=== PATIENT | male | born 1965 | race African-American/Black ===

== ENCOUNTER → 2018-01-14 | Day surgery (SDC) | payer OTHER ==
[2018-01-11 11:40] VITALS: BMI 29.5
[~2018-01-14] MED LIST: BUPIVACAIN-EPI 0.25%-1:200,000 30 ML VIAL INTRAARTIC ONE; DEXAMETHASONE SOD PHOSPHATE 10 MG/ML 1 ML VIAL IV ONE; GLYCOPYRROLATE 0.2 MG/ML 2 ML VIAL ONE; LACTATED RINGERS 1,000 ML IV ONE; LACTATED RINGERS 1,000 ML IV SCH; LIDOCAINE 1% 20 ML VIAL (10MG/ML) FOR IV START INTRADERMA ONE; LIDOCAINE 1% INJ 10MG/ML (20 ML MDV) ONE; LIDOCAINE 2%-EPI 1:100,000 20 ML VIAL ONE; MIDAZOLAM 2 MG/2 ML VIAL IV PRN; MORPHINE SULFATE 4 MG/ML SYRINGE IV PRN; ONDANSETRON 4 MG/2 ML VIAL IVP ONE; PHENYLEPHRINE-0.9% NACL SYG 1 MG/10 ML SYRINGE ONE; PROPOFOL 10 MG/ML 20 ML VIAL IV ONE; Pre Op ABX Message 1 EACH MISC MISCELLANE ONE; ROPIVACAINE 5 MG/ML 30 ML VIAL ONE; SUCCINYLCHOLINE CHLORIDE VIAL 200 MG/10 ML VIAL IV ONE; ceFAZolin IN SWFI 2 GM/20 ML SYRINGE IVP ONE; ePHEDrine SULFATE/0.9% NACL/PF 50 MG/5 ML SYRINGE IV ONE; fentaNYL (PF) 50 MCG/ML 2 ML AMP ONE
[2018-01-14 10:44] VITALS: RESP 16
[2018-01-14 11:11] LABS: Basophils % (A) 1 %; Eosinophils # (A) 0.2 k/uL (0-0.7); Eosinophils % (A) 4 %; HCT 40.5 % (39.0-53.0); HGB 13.7 gm/dL (13.0-17.5); Lymphocytes # (A) 1.3 k/uL (1.0-4.8); Lymphocytes % (A) 33 %; MCH 27.4 pg (25.0-35.0); MCHC 33.8 g/dL (31.0-37.0); MCV 81.1 fL (80.0-100.0); Mean Platelet Volume 6.4; Monocytes # (A) 0.4 k/uL (0-1.0); Monocytes % (A) 9 %; Neutrophils # (A) 2.1 k/uL (1.3-7.7); Neutrophils % (A) 51 %; Platelet Count 223 k/uL (150-450); RDW 14.1 % (11.5-15.5); WBC 4.1 k/uL (3.8-10.6)
[2018-01-14 13:54] VITALS: TEMP 97.3
--- NOTE | 2018-01-14 14:17 | P.ONQ ---
Anesthesiology Proc Note - PNB - Peripheral Nerve Block Performed Right Interscalene Single Time Out Performed: Yes Procedure Start Time: :23 Indication: Acute Post-Operative Pain, Analgesia Specifically requested for management of pain by DrTawnya: Juan Griffith Sedation Type: Sedate with meaningful contact maintained Preparation: Sterile Prep Position: Supine Catheter: None Needle Types: Other (see comment) (pajunk) Needle Size: 50mm (2") Needle Gauge: 21 Technique: Ultrasound Injectate: 0.5% Ropivacaine (see comment for volume) (30 cc) Blood Aspirated: No Pain Paresthesia on Injection Noted: No Resistance on Injection: Normal Events: Uneventful and Well Tolerated
[2018-01-14 14:34] VITALS: PULSE 83
[2018-01-14 14:48] VITALS: BP 139/82
--- NOTE | 2018-01-14 15:06 | OP ---
OPERATIVE REPORT DATE OF PROCEDURE: 01/14/2018 SURGEON: Juan Griffith MD. HORSE RACING ANALYST: KELL Erickson PREOPERATIVE DIAGNOSES: 1. Right shoulder full-thickness rotator cuff tear. 2. Right shoulder superior labral tear. 3. Right shoulder bicipital tenosynovitis. 4. Right shoulder subacromial impingement. POSTOPERATIVE DIAGNOSES: 1. Right shoulder full-thickness tear of the supraspinatus and anterior infraspinatus measuring 2 cm x 2 cm tear. 2. Right shoulder type 2 displaced superior labral tear. 3. Right shoulder high-grade partial tearing of the intra-articular portion of long head of the biceps tendon. 4. Right shoulder type 2 anterolateral acromial spur. 5. Right shoulder dense subacromial adhesions. PROCEDURE PERFORMED: 1. Right shoulder arthroscopic rotator cuff repair 2 cm x 2 cm tear. 2. Right shoulder arthroscopic acromioplasty. 3. Right shoulder arthroscopic biceps tenotomy. 4. Right shoulder arthroscopic anterior, superior and posterior labral debridement. 5. Right shoulder arthroscopic lysis of adhesions. ANESTHESIA: General endotracheal. ESTIMATED BLOOD LOSS: Minimal. TOURNIQUET: None. DRAINS: None. COMPLICATIONS: None apparent. DISPOSITION: Postanesthesia care unit. Examination under anesthesia, right shoulder elevation 150 degrees, external rotation at the side was to 30 degrees, external rotation at 90 degrees, abduction was 90 degrees, internal rotation at 90 degrees, abduction was 60 degrees, sulcus less than 1 cm, anterior translation glenoid face, posterior translation glenoid face. ARTHROSCOPIC FINDINGS RIGHT SHOULDER: 1. Superior labrum, degenerative type 2 superior labral tear tearing both anterior and posterior to the biceps anchor. The biceps anchor was not intact. There is also high-grade partial tearing of the intra-articular portion of long head of the biceps tendon. 2. Anterior inferior labrum, normal glenoid labral attachment. 3. Posterior labrum tearing of the posterior labrum from the 10 o'clock position up to the 12 o'clock position on the glenoid face. 4. Humeral head cartilage was normal. 5. Rotator cuff full-thickness tear of the supraspinatus and anterior aspect of the infraspinatus measuring 2 cm x 2 cm with moderate retraction. There was also significant fraying of the superior rolled border of the subscapularis, but approximate 90% intact attachment to the lesser tuberosity. 6. Glenoid face cartilage just mild grade 1 fraying. 7. Subacromial space significant fraying of the undersurface of the coracoacromial ligament with a type 2 anterolateral acromial spur. There is also very dense subacromial adhesions, adhesing the rotator cuff to the inferior aspect of the acromion. INDICATIONS: Romario is a pleasant 52-year-old male with longstanding right shoulder pain. He has noted weakness as well as significant pain in the shoulder. He has been through a very significant course of nonoperative treatment up to this point. Further examination and MRI reveal tearing of the rotator cuff as well as tearing of the superior labrum. At this point, he feels as if he has failed nonoperative treatment and would like to proceed with operative intervention. A long discussion was held with the patient with regard to treatment options. The risks of the procedure were all discussed with him in detail. These risks included, but were not limited to risk of infection, nerve damage, bleeding, pain, and a small risk of deep vein thrombosis which could lead to fatal pulmonary embolism. Further risks include lack of healing rotator cuff and the possibility for biceps contour change with a biceps tenotomy. The patient understands the operation as well as the fact that there was no guarantee of improvement of his symptoms. An appropriate informed consent was obtained. DESCRIPTION OF PROCEDURE: Patient identified in the preoperative holding area. Surgical sites marked by both the patient myself. He was given 2 g of Ancef IV for prophylactic purposes. He was then transported to the operative suite, was placed supine on the operative table. The patient was then intubated endotracheally and received general anesthesia throughout the operative procedure. Examination under anesthesia was then performed and the findings were noted above. Patient was then placed into the beach-chair position and well-padded in preparation for surgery. Great care was taken to ensure the cervical spine was in neutral alignment, well-padded and maintained that way throughout the operative procedure. Great care was also taken to ensure that his legs were appropriately padded as well. Patient's right upper extremity is then prepped and draped in the usual sterile fashion. Standard surgical pause undertaken to ensure that appropriate preoperative antibiotics have been given and that we were operating in the correct site. All staff in the room were in agreement and we proceeded. The acromion as well as the AC joint, coracoid were marked with surgical pen. The skin of the anticipated portal sites were also marked with surgical pen. The skin of the anticipated portal sites were then marked with surgical pen. The skin at the anticipated portal sites were then injected with 0.25% Marcaine with epinephrine. I then proceeded to make a posterior portal. A 30 degree arthroscope was introduced in the glenohumeral joint through this portal. The arthroscopic pump pressure was set at 40 mmHg and maintained at that level throughout the entire case. Next, utilizing an 18-gauge spinal needle, topical localized the placement, the anterior superior portal was made. This was made just underneath the biceps tendon high in the rotator interval. A pair of small blue 5.75 mm cannula was then placed and the outflow was then done through this cannula. Diagnostic arthroscopy of the shoulder was then performed. The findings were noted above. Great care was taken to probe superior labral complex throughout the biceps anchor. The biceps anchor was not firmly attached. He has significant tearing of the superior labrum. This extended both anterior and posterior to the biceps anchor. The intra- articular portion of long head of the biceps tendon did have high-grade partial tearing as well. At this point, I proceeded with a biceps tenotomy. The biceps was tenotomized near its attachment onto the supraglenoid tubercle. This was done utilizing the ArthroCare wand. I then proceeded to debride the torn loose tissue of the superior labrum. This was debrided anteriorly, superiorly and posteriorly back to stable tissue. I then inspect the rotator cuff from intra-articular. He did have a fairly large full- thickness tear of the supraspinatus, which extended into the anterior aspect of the infraspinatus. He also had some significant fraying and partial tearing of the superior rolled border of the subscapularis. However, the subscapularis showed good attachment throughout 90% of the tendon to the lesser tuberosity. At this point in time. no further work was deemed necessary from intra-articular. The arthroscope was removed from the from the glenohumeral joint and utilizing in the same posterior skin incision and was placed into the subacromial space. Utilizing an 18-gauge spinal needle, topical localized placement, a lateral portal was made under direct visualization. Subacromial bursectomy was then performed utilizing synovial shaver as well as the ArthroCare wand. There was significant fraying of the undersurface of the coracoacromial ligament. This was then taken down utilizing the ArthroCare wand. This exposed underlying type 2 anterolateral acromial spur. I then proceeded with an acromioplasty. Utilizing synovial shaver in a alexi-type fashion. the acromioplasty was completed. When the acromioplasty was complete, the arthroscope was placed in the lateral portal and shaver placed posteriorly to ensure there was adequate and coplanar with the posterior aspect of the acromion. I then proceeded to repair the rotator cuff tear. He had a full-thickness tear of the rotator cuff. This measured approximately 2 cm x 2 cm. The footprint of the greater tuberosity was then debrided of all devitalized tissue utilizing synovial shaver as well as the ArthroCare wand. I then performed a light decortication of the greater tuberosity utilizing synovial shaver in a alexi-type fashion. This provided a nice bleeding surface with repair. Then placed small microfracture holes along the articular margin to again enhance the healing of the repair. I then utilized Roobiq suture passer and placed Arthrex fiber tape suture in inverted horizontal mattress fashion in the posterior 1/2 of the tear. The sutures were shuttled out through the posterior portal. I then placed a second Arthrex FiberTape suture in an inverted horizontal mattress fashion in the anterior 1/2 of the tear. The sutures were shuttled out through the anterior portal. I then proceeded with placement of the anchor. The awl was placed in the most posterior lateral aspect of the footprint. The posterior sutures were then shuttled out through the lateral portal. He had good bone quality. An Arthrex 4.75 mm bio SwiveLock anchor was chosen. FiberTape sutures were shuttled through the anchor. They were tentioned appropriately and then the anchor was placed with excellent purchase in bone. This brought the posterior aspect of the tear down very nicely in the most posterolateral aspect of the footprint. The FiberTape sutures were cut flush with the anchor. I then proceeded with placement of the second anchor. The awl was placed in the most anterolateral aspect of the footprint. This was just posterior to the bicipital groove. Again, the FiberTape sutures were shuttled through another 4.75 mm bio SwiveLock anchor. Then the anchor was then placed after tensioning the sutures appropriately. This anchor also had an excellent purchase in bone. This brought the anterior half of the tear down very nicely to the most anterolateral aspect of the footprint. I then probed the repair. It was very secure. The sutures had good tension. The rotator cuff was then brought down very nicely in the most lateral aspect of the footprint. The shoulder was internally and externally rotated to inspect the remainder and at this point, no further work was deemed necessary. The shoulder was then thoroughly irrigated and drained with outflow cannula. The arthroscope was removed from the shoulder. The arthroscopic portals were then closed with 3-0 nylon interrupted suture. Sterile compressive dressing was then applied. The patient's right upper extremity was then placed into a slingshot-type rotator cuff immobilizer. All sponge and needle counts were deemed correct prior to closure. The patient tolerated the procedure without apparent complication. He was transferred to recovery room in stable condition. MILANA / RUFUSN: [id number] /
== END | disposition home or self-care (01) ==
LOC: OR 10:12
PROVIDERS: ATTEND Orthopaedic Surgery Sports Medicine
DX: M75.121 Complete rotator cuff tear or rupture of right shoulder, not specified as traumatic (principal); S43.491A Other sprain of right shoulder joint, initial encounter; S46.111A Strain of muscle, fascia and tendon of long head of biceps, right arm, initial encounter; M75.01 Adhesive capsulitis of right shoulder; M75.81 Other shoulder lesions, right shoulder; W19.XXXA Unspecified fall, initial encounter; I10 Essential (primary) hypertension; E78.5 Hyperlipidemia, unspecified; Z72.0 Tobacco use; R73.03 Prediabetes; D57.3 Sickle-cell trait; M50.10 Cervical disc disorder with radiculopathy, unspecified cervical region; Z79.899 Other long term (current) drug therapy; Z85.46 Personal history of malignant neoplasm of prostate
CPT/HCPCS: 64415; 85025; 29826; 29827; 29823; 29807; C1713 ×3; J2250; J0330; J1100; J2405; J2001; J3010; J2795; J2370; J2704; J0690

== ENCOUNTER 2018-07-11 11:32 | Emergency (ER) | payer OTHER ==
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
--- NOTE | 2018-07-11 12:16 | XR ---
EXAMINATION TYPE: XR finger RT , 3 VIEWS DATE OF EXAM ORDERED: 07/11/2018 HISTORY: Pain. COMPARISON: None. FINDINGS: No fracture, dislocation or other acute osseous lesion is seen. IMPRESSION: NO ACUTE OSSEOUS LESION.
[2018-07-11 13:05] VITALS: BP 143/90; PULSE 63; RESP 18; TEMP 97.5
== END 2018-07-11 13:13 | disposition home or self-care (01) ==
LOC: EC 11:32
DX: S61.214A Laceration without foreign body of right ring finger without damage to nail, initial encounter (principal); I10 Essential (primary) hypertension; M19.90 Unspecified osteoarthritis, unspecified site; F17.200 Nicotine dependence, unspecified, uncomplicated; Z79.1 Long term (current) use of non-steroidal anti-inflammatories (NSAID); Z79.899 Other long term (current) drug therapy; Z85.46 Personal history of malignant neoplasm of prostate; Z98.890 Other specified postprocedural states; Y08.02XA Assault by strike by baseball bat, initial encounter; Y93.89 Activity, other specified; Y92.009 Unspecified place in unspecified non-institutional (private) residence as the place of occurrence of the external cause
CPT/HCPCS: 99283

== ENCOUNTER 2018-07-14 16:25 | Emergency (ER) | payer OTHER ==
[2018-07-14 16:48] VITALS: BP 163/95; PULSE 65; RESP 18; TEMP 98.3
--- NOTE | 2018-07-14 17:46 | XR ---
EXAMINATION TYPE: XR knee complete RT DATE OF EXAM: 07/14/2018 COMPARISON: NONE HISTORY: Pain after falling TECHNIQUE: 3 views FINDINGS: I see no fracture nor dislocation. There is mild knee joint effusion. There is bipartite pa tella which is a normal variant. There is spurring on the patella. Impression no acute bony abnormality. Small knee joint effusion.
--- NOTE | 2018-07-14 17:47 | XR ---
EXAMINATION TYPE: XR shoulder complete LT DATE OF EXAM: 07/14/2018 COMPARISON: NONE HISTORY: Pain TECHNIQUE: 3 views FINDINGS: I see no fracture nor dislocation. Joint spaces are normal. There are no pathologic calcifi cations. IMPRESSION: Negative left shoulder exam.
--- NOTE | 2018-07-14 17:56 | ED ---
General Adult HPI - General Chief complaint: Extremity Injury, Lower Stated complaint: Shoulder&Knee Injury Time Seen by Provider: 07/14/18 16:49 Source: patient, RN notes reviewed Mode of arrival: ambulatory Limitations: no limitations - History of Present Illness Initial comments: Patient is a 53-year-old male who comes in with complaints of right knee and left shoulder pain after he fell yesterday. 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 Patient denies hitting his head , losing consciousness or having dizziness. He states that he now is having trouble abducting his left arm. Denies any numbness or tingling. Denies neck pain. States he has a laceration on his finger from a few days ago that has been treated. - Related Data Home Medications Medication Instructions Recorded Confirmed Ergocalciferol [Vitamin D2] 50,000 unit PO TH 01/11/18 07/11/18 Ibuprofen 800 mg PO QID PRN 01/11/18 07/11/18 Meloxicam 15 mg PO DAILY 01/11/18 07/11/18 amLODIPine [Norvasc] 5 mg PO DAILY 01/11/18 07/11/18 Previous Rx's Medication Instructions Recorded Docusate [Colace] 100 mg PO BID #60 capsule 01/14/18 Doxycycline Hyclate 100 mg PO BID #10 tab 01/14/18 HYDROcodone/APAP 7.5-325MG [[place] 1 - 2 tab PO Q6HR PRN #60 tab 01/14/18 7.5-325] Cephalexin [Keflex] 500 mg PO Q6HR #28 cap 07/11/18 Allergies Allergy/AdvReac Type Severity Reaction Status Date / Time No Known Allergies Allergy Verified 07/14/18 16:48 Review of Systems ROS Statement: Those systems with pertinent positive or pertinent negative responses have been documented in the HPI. ROS Other: All systems not noted in ROS Statement are negative. Past Medical History Past Medical History: Cancer, Diabetes Mellitus, Hyperlipidemia, Hypertension, Osteoarthritis (OA), Prostate Disorder Additional Past Medical History / Comment(s): HX OF BORDERLINE DIABETES-no problems since wt loss-watches diet. , HEART MURMUR A CHILD, STATES HE SNORES ALOT., SICKLE CELL TRAIT, PROSTATE CANCER History of Any Multi-Drug Resistant Organisms: None Reported Past Surgical History: Back Surgery, Orthopedic Surgery, Prostate Surgery Additional Past Surgical History / Comment(s): LAMINECTOMY X 2., right shoulder Past Anesthesia/Blood Transfusion Reactions: No Reported Reaction Additional Past Anesthesia/Blood Transfusion Reaction / Comment(s): . Past Psychological History: Depression Smoking Status: Current every day smoker Past Alcohol Use History: Occasional Past Drug Use History: None Reported - Past Family History Father Family Medical History: Diabetes Mellitus, Hypertension Mother Family Medical History: No Reported History General Exam - General Exam Comments Initial Comments: General: The patient is awake and alert, in no distress, and does not appear acutely ill. Neck: The neck is supple, there is no tenderness or JVD. Cardiovascular: There is a regular rate and rhythm. No murmur, rub or gallop is appreciated. Radial pulses 2+. DP pulses 2+. PT pulses 2+. Cap refill less than 3 seconds upper and lower extremities. Respiratory: Lungs are clear to auscultation, respirations are non-labored, breath sounds are equal. No wheezes, stridor, rales, or rhonchi. Musculoskeletal: Patient unable to fully abduct left arm. Tenderness to palpation over left shoulder. Right arm range of motion normal. Full neck range of motion without pain. Funeral Prearrangement Counselor strength 5 out of 5 bilaterally. Elbow range of motion normal bilaterally. Knee range of motion normal bilaterally. Tenderness to palpation over the right knee. Right knee anterior drawer test negative. Right hip ROM normal. Neurological: A&O x 3. There are no obvious motor or sensory deficits. Coordination appears grossly intact. Speech is normal. Skin: Skin is warm and dry. Small bruise over the anterior upper arm. Laceration on the right 4th digit without redness, drainage or swelling. Psychiatric: Normal mood and affect. Limitations: no limitations Course Vital Signs 07/14/18 16:46 Temperature 98.3 F Pulse Rate 65 Respiratory 18 Rate Blood Pressure 163/95 O2 Sat by Pulse 98 Oximetry Medical Decision Making - Medical Decision Making Patient complains of right knee and left shoulder pain. X-rays of the right knee and left shoulder were both negative. Pt instructed to follow up with orthopedics within a day or two. Tylenol or ibuprofen for pain as needed. Patient states he has antibiotic ointment at home for his finger laceration. Disposition Clinical Impression: Left shoulder pain, Right knee pain Disposition: HOME SELF-CARE Condition: Good Instructions: Shoulder Pain (ED), Knee Pain (ED) Additional Instructions: Follow-up with orthopedics in a day or 2. Return to the ER if symptoms worsen or any other concerns. Is patient prescribed a controlled substance at d/c from ED?: No Referrals: Jose Angel Goodrich MD [Primary Care Provider] - 1-2 days Dat Soler MD [STAFF PHYSICIAN] - 1-2 days Time of Disposition: 18:25 (Patient left before given discharge paperwork. )
== END 2018-07-14 18:23 | disposition home or self-care (01) ==
LOC: EC 16:25
DX: S40.022A Contusion of left upper arm, initial encounter (principal); S61.214D Laceration without foreign body of right ring finger without damage to nail, subsequent encounter; M25.561 Pain in right knee; M25.512 Pain in left shoulder; M21.371 Foot drop, right foot; I10 Essential (primary) hypertension; M19.90 Unspecified osteoarthritis, unspecified site; F17.200 Nicotine dependence, unspecified, uncomplicated; Z79.1 Long term (current) use of non-steroidal anti-inflammatories (NSAID); Z79.899 Other long term (current) drug therapy; Z85.46 Personal history of malignant neoplasm of prostate; Z98.890 Other specified postprocedural states; W01.0XXA Fall on same level from slipping, tripping and stumbling without subsequent striking against object, initial encounter; X58.XXXD Exposure to other specified factors, subsequent encounter
CPT/HCPCS: 99283

== ENCOUNTER 2020-04-02 21:43 | Emergency (ER) | payer OTHER ==
[2020-04-02 21:51] VITALS: RESP 18
[2020-04-02] MEDS ORDERED: SODIUM CHLORIDE 0.9% 1,000 ML IV STA (22:10)
[2020-04-02] MEDS ORDERED: KETOROLAC 30 MG/ML 1 ML VIAL IVP STA (22:11)
--- NOTE | 2020-04-02 22:16 | ED ---
Abdominal Pain HPI - General Chief Complaint: Abdominal Pain Stated Complaint: Chest Pain,Abdominal Pain Time Seen by Provider: 04/02/20 22:03 Source: patient, RN notes reviewed Mode of arrival: ambulatory Limitations: no limitations - History of Present Illness Initial Comments: This is a 54-year-old male with a history of rotator cuff injury but no personal history of heart lung or abdominal disease who states he's had 4 days of midepigastric pain feeling heartburn right now is about 8/10 severity gets worse with certain foods no shortness breath no nausea vomiting no fevers chills or sweats he believes he was told by his doctor he did have gallbladder issues. Pains this bad won't go away. He has been doing in the past he does state he feels a 52 and passed gas either burping her from his rectum and wouldn't relieve the pain but hasn't happened yet. No other complaints or modifying factors is a family history of heart disease patient does have elevated cholesterol no other complaints he does smoke. MD Complaint: abdominal pain - Related Data Home Medications Medication Instructions Recorded Confirmed Ergocalciferol [Vitamin D2] 50,000 unit PO TH 01/11/18 07/11/18 Ibuprofen 800 mg PO QID PRN 01/11/18 07/11/18 Meloxicam 15 mg PO DAILY 01/11/18 07/11/18 amLODIPine [Norvasc] 5 mg PO DAILY 01/11/18 07/11/18 Previous Rx's Medication Instructions Recorded Docusate [Colace] 100 mg PO BID #60 capsule 01/14/18 Doxycycline Hyclate 100 mg PO BID #10 tab 01/14/18 HYDROcodone/APAP 7.5-325MG [[place] 1 - 2 tab PO Q6HR PRN #60 tab 01/14/18 7.5-325] Cephalexin [Keflex] 500 mg PO Q6HR #28 cap 07/11/18 Allergies Allergy/AdvReac Type Severity Reaction Status Date / Time No Known Allergies Allergy Verified 04/02/20 21:51 Review of Systems ROS Statement: Those systems with pertinent positive or pertinent negative responses have been documented in the HPI. ROS Other: All systems not noted in ROS Statement are negative. Past Medical History Past Medical History: Cancer, Diabetes Mellitus, Hyperlipidemia, Hypertension, Osteoarthritis (OA), Prostate Disorder Additional Past Medical History / Comment(s): HX OF BORDERLINE DIABETES-no problems since wt loss-watches diet. , HEART MURMUR A CHILD, STATES HE SNORES ALOT., SICKLE CELL TRAIT, PROSTATE CANCER History of Any Multi-Drug Resistant Organisms: None Reported Past Surgical History: Back Surgery, Orthopedic Surgery, Prostate Surgery Additional Past Surgical History / Comment(s): LAMINECTOMY X 2., right shoulder Past Anesthesia/Blood Transfusion Reactions: No Reported Reaction Additional Past Anesthesia/Blood Transfusion Reaction / Comment(s): . Past Psychological History: Depression Smoking Status: Current every day smoker Past Alcohol Use History: Occasional Past Drug Use History: Marijuana - Past Family History Father Family Medical History: Diabetes Mellitus, Hypertension Mother Family Medical History: No Reported History General Exam - General Exam Comments Initial Comments: This is a well-developed well-nourished awake alert oriented 3 male Limitations: no limitations General appearance: alert, in no apparent distress Head exam: Present: atraumatic, normocephalic, normal inspection Eye exam: Present: normal appearance, PERRL, EOMI. Absent: scleral icterus, conjunctival injection, periorbital swelling ENT exam: Present: normal exam, mucous membranes moist Neck exam: Present: normal inspection, full ROM, other (No stridor JVD or bruits). Absent: tenderness, meningismus, lymphadenopathy Respiratory exam: Present: normal lung sounds bilaterally. Absent: respiratory distress, wheezes, rales, rhonchi, stridor Cardiovascular Exam: Present: regular rate, normal rhythm, normal heart sounds. Absent: systolic murmur, diastolic murmur, rubs, gallop, clicks GI/Abdominal exam: Present: soft, tenderness (Epigastric right upper quadrant tenderness palpation no overt guarding rebound masses or bruits), normal bowel sounds. Absent: distended, guarding, rebound, rigid Rectal exam: Present: deferred Extremities exam: Present: normal inspection, full ROM, normal capillary refill. Absent: tenderness, pedal edema, joint swelling, calf tenderness Back exam: Present: normal inspection Neurological exam: Present: alert, oriented X3, CN II-XII intact Psychiatric exam: Present: normal affect, normal mood Skin exam: Present: warm, dry, intact, normal color. Absent: rash Course Vital Signs 04/02/20 21:47 Temperature 98.1 F Pulse Rate 84 Respiratory 18 Rate Blood Pressure 145/84 O2 Sat by Pulse 100 Oximetry - Reevaluation(s) Reevaluation #1: 04/02/20 22:39 The patient passed a lot of flatus and feels totally back to normal at this time. He states he does not want any x-rays would like to go home we did discu ss the issues of our initial concern he was allowed to go home and follow up outpatient with his doctor. At this time and no feel this is unreasonable that we do not have all his labs back he was warned that if there is something amiss we may not find out later today he will follow-up return parameters were discussed Procedures - Smoking Cessation Time Spent Discussing Smoking Cessation w/Patient (Minutes): 3 Patient Acknowledges Need for Cessation: Yes Medical Decision Making - Medical Decision Making Patient will be discharged he does not want stay any longer here he does not want x-rays or to wait for lab work to come back. We did discuss return parameters we did discuss risks and benefits he is willing to accept the risks. He will follow-up with his doctor and return when necessary - Lab Data Result diagrams: 04/02/20 22:14 Lab Results 04/02/20 Range/Units 22:14 WBC 6.9 (3.8-10.6) k/uL RBC 5.01 (4.30-5.90) m/uL Hgb 13.6 (13.0-17.5) gm/dL Hct 42.2 (39.0-53.0) % MCV 84.3 (80.0-100.0) fL MCH 27.2 (25.0-35.0) pg MCHC 32.3 (31.0-37.0) g/dL RDW 13.8 (11.5-15.5) % Plt Count 301 (150-450) k/uL Neutrophils % 67 % Lymphocytes % 21 % Monocytes % 7 % Eosinophils % 3 % Basophils % 1 % Neutrophils # 4.6 (1.3-7.7) k/uL Lymphocytes # 1.4 (1.0-4.8) k/uL Monocytes # 0.5 (0-1.0) k/uL Eosinophils # 0.2 (0-0.7) k/uL Basophils # 0.0 (0-0.2) k/uL - EKG Data -: EKG Interpreted by Me EKG shows normal: sinus rhythm EKG Comments: There was sinus rhythm a 75. Interval 158 QRS duration 80 QT since QTC 370/413 this appears be a normal EKG no acute ST-T wave changes Disposition Clinical Impression: Abdominal pain Disposition: HOME SELF-CARE Condition: Good Instructions (If sedation given, give patient instructions): Abdominal Pain (ED) Is patient prescribed a controlled substance at d/c from ED?: No Referrals: Jose Angel Goodrich MD [Primary Care Provider] - 1-2 days
[2020-04-02 22:32] LABS: Basophils % (A) 1 %; Eosinophils # (A) 0.2 k/uL (0-0.7); Eosinophils % (A) 3 %; HCT 42.2 % (39.0-53.0); HGB 13.6 gm/dL (13.0-17.5); Lymphocytes # (A) 1.4 k/uL (1.0-4.8); Lymphocytes % (A) 21 %; MCH 27.2 pg (25.0-35.0); MCHC 32.3 g/dL (31.0-37.0); MCV 84.3 fL (80.0-100.0); Mean Platelet Volume 6.7; Monocytes # (A) 0.5 k/uL (0-1.0); Monocytes % (A) 7 %; Neutrophils # (A) 4.6 k/uL (1.3-7.7); Neutrophils % (A) 67 %; Platelet Count 301 k/uL (150-450); RBC 5.01 m/uL (4.30-5.90); RDW 13.8 % (11.5-15.5); WBC 6.9 k/uL (3.8-10.6)
[2020-04-02 22:45] LABS: Albumin 4.4 g/dL (3.5-5.0); Calcium 9.5 mg/dL (8.4-10.2); Potassium 4.4 mmol/L (3.5-5.1); Total Bilirubin 0.4 mg/dL (0.2-1.3); Total Protein 7.3 g/dL (6.3-8.2)
[2020-04-02 22:53] VITALS: BP 137/99; PULSE 79; TEMP 98.3
== END 2020-04-02 22:45 | disposition home or self-care (01) ==
LOC: EC 21:43
DX: R10.13 Epigastric pain (principal); R07.9 Chest pain, unspecified; Z71.6 Tobacco abuse counseling; I10 Essential (primary) hypertension; M19.90 Unspecified osteoarthritis, unspecified site; Z85.46 Personal history of malignant neoplasm of prostate; F17.200 Nicotine dependence, unspecified, uncomplicated; Z79.1 Long term (current) use of non-steroidal anti-inflammatories (NSAID); Z79.899 Other long term (current) drug therapy
CPT/HCPCS: 36415; 80053; 82150; 82550; 83690; 84484; 85025; 93005; 99284; 99406

== ENCOUNTER 2024-05-11 13:13 | Emergency (ER) | payer BC, OTHER ==
[2024-05-11 13:26] VITALS: BP 165/83; PULSE 75; RESP 18; TEMP 97.6
--- NOTE | 2024-05-11 14:13 | XR ---
EXAMINATION TYPE: XR wrist complete RT DATE OF EXAM: 05/11/2024 COMPARISON: NONE HISTORY: 58-year-old male wrist pain TECHNIQUE: 4 views FINDINGS: Mild degenerative spurring at the first CMC joint. Radiocarpal and distal radial ulnar join t as well as the midcarpal compartment appear intact. No acute fracture, subluxation, or dislocation seen. IMPRESSION: Mild osteoarthritic change at the base of the thumb. No acute osseous abnormality seen.
--- NOTE | 2024-05-11 14:33 | ED ---
Upper Extremity HPI - General Chief Complaint: Extremity Injury, Upper Stated Complaint: R wrist injury Time Seen by Provider: 05/11/24 13:32 Source: patient, RN notes reviewed Mode of arrival: ambulatory Limitations: no limitations - History of Present Illness Initial Comments: 58-year-old male presents emergency department complaint of right wrist pain. Patient states he fell backward catching himself on the right wrist states his pain, swelling denies any paresthesias. Patient denies any head injury no loss conscious no other complaints. - Related Data Home Medications Medication Instructions Recorded Confirmed Ergocalciferol [Vitamin D2] 50,000 unit PO TH 01/11/18 07/11/18 Ibuprofen 800 mg PO QID PRN 01/11/18 07/11/18 Meloxicam 15 mg PO DAILY 01/11/18 07/11/18 amLODIPine [Norvasc] 5 mg PO DAILY 01/11/18 07/11/18 Previous Rx's Medication Instructions Recorded Docusate [Colace] 100 mg PO BID #60 capsule 01/14/18 Doxycycline Hyclate 100 mg PO BID #10 tab 01/14/18 HYDROcodone/APAP 7.5-325MG [[place] 1 - 2 tab PO Q6HR PRN #60 tab 01/14/18 7.5-325] Cephalexin [Keflex] 500 mg PO Q6HR #28 cap 07/11/18 Allergies Allergy/AdvReac Type Severity Reaction Status Date / Time No Known Allergies Allergy Verified 05/11/24 13:25 Review of Systems ROS Statement: Those systems with pertinent positive or pertinent negative responses have been documented in the HPI. ROS Other: All systems not noted in ROS Statement are negative. Past Medical History Past Medical History: Cancer, Diabetes Mellitus, Hyperlipidemia, Hypertension, Osteoarthritis (OA), Prostate Disorder Additional Past Medical History / Comment(s): HX OF BORDERLINE DIABETES-no problems since wt loss-watches diet. , HEART MURMUR A CHILD, STATES HE SNORES ALOT., SICKLE CELL TRAIT, PROSTATE CANCER History of Any Multi-Drug Resistant Organisms: None Reported Past Surgical History: Back Surgery, Orthopedic Surgery, Prostate Surgery Additional Past Surgical History / Comment(s): LAMINECTOMY X 2., right shoulder Past Anesthesia/Blood Transfusion Reactions: No Reported Reaction Additional Past Anesthesia/Blood Transfusion Reaction / Comment(s): . Past Psychological History: Depression Past Alcohol Use History: Occasional Past Drug Use History: Marijuana - Past Family History Father Family Medical History: Diabetes Mellitus, Hypertension Mother Family Medical History: No Reported History General Exam Limitations: no limitations General appearance: alert, in no apparent distress Head exam: Present: atraumatic, normocephalic, normal inspection Respiratory exam: Present: normal lung sounds bilaterally. Absent: respiratory distress, wheezes, rales, rhonchi, stridor Cardiovascular Exam: Present: regular rate, normal rhythm, normal heart sounds. Absent: systolic murmur, diastolic murmur, rubs, gallop, clicks Extremities exam: Present: other (Right wrist there is mild swelling, tenderness at the distal radius neurovascular intact no tenderness proximal or distal) Course Vital Signs 05/11/24 13:24 Temperature 97.6 F Pulse Rate 75 Respiratory 18 Rate Blood Pressure 165/83 O2 Sat by Pulse 99 Oximetry Medical Decision Making - Medical Decision Making Was pt. sent in by a medical professional or institution (, PA, ARTIFICIAL INSEMINATION TECHNICIAN, urgent care, hospital, or long term...) When possible be specific @ -No Did you speak to anyone other than the patient for history (EMS, parent, family, police, friend...)? What history was obtained from this source @ -No Did you review nursing and triage notes (agree or disagree)? Why? @ -I reviewed and agree with nursing and triage notes Were old charts reviewed (outside hosp., previous admission, EMS record, old EKG, old radiological studies, urgent care reports/EKG's, long term records)? Report findings @ -No old charts were reviewed Differential Diagnosis (chest pain, altered mental status, abdominal pain women, abdominal pain men, vaginal bleeding, weakness, fever, dyspnea, syncope, headache, dizziness, GI bleed, back pain, seizure, CVA, palpatations, mental health, musculoskeletal)? @ -Wrist pain, wrist fracture EKG interpreted by me (3pts min.). @ -None X-rays interpreted by me (1pt min.). @ -X-ray right wrist shows no acute fracture CT interpreted by me (1pt min.). @ -None done U/S interpreted by me (1pt. min.). @ -None done What testing was considered but not performed or refused? (CT, X-rays, U/S, labs)? Why? @ -None What meds were considered but not given or refused? Why? @ -None Did you discuss the management of the patient with other professionals (professionals i.e. , PA, ARTIFICIAL INSEMINATION TECHNICIAN, lab, RT, psych nurse, social worker aide, death clearance coordinator, teacher, chief nursing officer, social work case manager)? Give summary @ -No Was smoking cessation discussed for >3mins.? @ -No Was critical care preformed (if so, how long)? @ -No Were there social determinants of health that impacted care today? How? (Homelessness, low income, unemployed, alcoholism, drug addiction, transportation, low edu. Level, literacy, decrease access to med. care, custodial, rehab)? @ -No Was there de-escalation of care discussed even if they declined (Discuss DNR or withdrawal of care, Hospice)? DNR status @ -No What co-morbidities impacted this encounter? (DM, HTN, Smoking, COPD, CAD, Cancer, CVA, ARF, Chemo, Hep., AIDS, mental health diagnosis, sleep apnea, morbid obesity)? @ -None Was patient admitted / discharged? Hospital course, mention meds given and route, prescriptions, significant lab abnormalities, going to OR and other pertinent info. @ -Discharge patient has right wrist sprain x-ray is are negative for acute fracture Undiagnosed new problem with uncertain prognosis? @ -No Drug Therapy requiring intensive monitoring for toxicity (Heparin, Nitro, Insulin, Cardizem)? @ -No Were any procedures done? @ -No Diagnosis/symptom? @ -Right wrist sprain Acute, or Chronic, or Acute on Chronic? @ -Acute Uncomplicated (without systemic symptoms) or Complicated (systemic symptoms)? @ -Uncomplicated Side effects of treatment? @ -No Exacerbation, Progression, or Severe Exacerbation? @ -No Poses a threat to life or bodily function? How? (Chest pain, [place], [place], pneumonia, PE, COPD, DKA, ARF, appy, cholecystitis, CVA, Diverticulitis, Homicidal, Suicidal, threat to staff... and all critical care pts) @ -No Disposition Clinical Impression: Right wrist sprain Disposition: HOME SELF-CARE Condition: Stable Instructions (If sedation given, give patient instructions): Wrist Injury (ED) Additional Instructions: Please return to the Emergency Department if symptoms worsen or any other concerns. Is patient prescribed a controlled substance at d/c from ED?: No Referrals: Jose Angel Goodrich MD [Primary Care Provider] - 1-2 days Time of Disposition: 14:33
== END 2024-05-11 14:55 | disposition home or self-care (01) ==
LOC: EC 13:13
DX: S63.501A Unspecified sprain of right wrist, initial encounter (principal); X50.0XXA Overexertion from strenuous movement or load, initial encounter
CPT/HCPCS: 99283